=== PATIENT | male | born 1955 | race Caucasian/White ===

== ENCOUNTER 2017-11-04 17:04 | Emergency (ER) | payer OTHER ==
[~2017-11-04] VITALS: Ht 172.7 cm; Wt 63.5 kg
[~2017-11-04 17:04] MED LIST: CLINDAMYCIN HC300 MG PO; DELTASONE20 M1 PO; NOHOMEMEDS; PEN-VEE K,VEET500 MG PO; PHENERGAN-CODE120 ML PO; VALIUM5 MG PO; ZITHROMAX Z-PA250 MG PO
[2017-11-04 17:07] VITALS: BP 173/99
== END 2017-11-04 18:15 | disposition left against medical advice (07) ==
LOC: EME 17:04
DX: K08.89 Other specified disorders of teeth and supporting structures (principal); Z53.21 Procedure and treatment not carried out due to patient leaving prior to being seen by health care provider
CPT/HCPCS: 99281; 99283

== ENCOUNTER 2018-04-09 20:29 | Emergency (ER) | payer OTHER ==
[~2018-04-09] VITALS: Ht 172.7 cm; Wt 64.9 kg
[2018-04-09 20:44] VITALS: BP 136/82
== END 2018-04-09 21:17 | disposition left against medical advice (07) ==
LOC: EME 20:29
DX: R11.10 Vomiting, unspecified (principal); Z53.21 Procedure and treatment not carried out due to patient leaving prior to being seen by health care provider
CPT/HCPCS: 99281; 99283

== ENCOUNTER → 2018-04-09 | Emergency (ER) | payer OTHER ==
[~2018-04-09] VITALS: Ht 177.8 cm; Wt 60.0 kg
[2018-04-09 18:55] VITALS: BP 164/103
== END | disposition home or self-care (01) ==
LOC: EME 18:38
DX: R55 Syncope and collapse (principal); V49.9XXA Car occupant (driver) (passenger) injured in unspecified traffic accident, initial encounter; Y92.410 Unspecified street and highway as the place of occurrence of the external cause; Z53.21 Procedure and treatment not carried out due to patient leaving prior to being seen by health care provider; F17.200 Nicotine dependence, unspecified, uncomplicated
CPT/HCPCS: 99281; 99283